=== PATIENT | female | born 1970 | race Caucasian/White ===

== ENCOUNTER 2024-06-07 15:17 | Outpatient (REF) | payer MEDICAID, SELFPAY ==
[2024-06-07 22:11] LABS: ALT 28 U/L (14-59); AST 21 U/L (15-37); Albumin 3.9 g/dL (3.4-5.0); Alkaline Phosphatase 55 U/L (46-116); BUN 6 mg/dL (7-18); Bilirubin, Total 0.42 mg/dL (0.2-1.0); CO2 30.1 mmol/L (21.0-32.0); CREATININE 0.8 mg/dL (0.55-1.02); Calcium 8.9 mg/dL (8.5-10.1); Calculated LDL 148 mg/dL (<100); Cholesterol 245 mg/dL (<200); Estimated GFR 86.96 (mL/min/1.73m2); Glucose 91 mg/dL (74-106); HDL Cholesterol 91 mg/dL (40-60); Total Protein 7.1 g/dL (6.4-8.2); Triglyceride 31 mg/dL (<150)
[2024-06-07 22:39] LABS: Anion Gap 6.9 mmol/L (3-11); Chloride 101 mmol/L (98-107); Potassium 3.7 mmol/L (3.5-5.1); Sodium 138 mmol/L (136-145)
== END 2024-06-07 15:18 | disposition home or self-care (01) ==
LOC: NCHCN 15:17
PROVIDERS: PCP Family Medicine; Visit Provider Family Medicine
DX: Z13.220 Encounter for screening for lipoid disorders (principal); Z13.228 Encounter for screening for other metabolic disorders; R79.89 Other specified abnormal findings of blood chemistry
CPT/HCPCS: 80053; 80061

== ENCOUNTER 2025-01-30 22:33 | Outpatient (REF) | payer MEDICAID, SELFPAY ==
[2025-01-30 23:09] LABS: Abs Immature Grans 0.01 10^3/uL (0.0-0.06); Absolute Basophil Count 0.03 10^3/uL (0.0-0.2); Absolute Eosinophil Count 0.07 10^3/uL (0.0-0.7); Absolute Lymphocyte Count 1.78 10^3/uL (1.2-3.4); Absolute Monocyte Count 0.44 10^3/uL (0.1-0.8); Absolute Neutrophil Count 3.14 10^3/uL (1.2-6.7); Basophils % 0.5 %; Eosinophils % 1.3 %; HCT 40.1 % (36.0-46.0); HGB 12.7 g/dL (11.2-15.7); Immature Grans % 0.2 %; Lymphocytes % 32.5 %; MCH 26.1 pg (27.0-33.0); MCHC 31.7 % (32.0-36.0); MCV 82 fL (80-95); MPV 10.3 fL (8.0-11.0); Neutrophils % 57.5 %; Platelet Count 257 10^3/uL (130-400); RBC 4.87 10^6/uL (3.93-5.22); RDW 13.6 % (11.7-14.6); RDW-SD 40.8 fL; WBC 5.47 10^3/uL (4.4-10.8)
[2025-01-30 23:11] LABS: ESR 8 mm/hr (0-30)
[2025-01-31 18:16] LABS: Rheumatoid Factor <8.6 IU/mL (<12.0)
[2025-02-01 09:23] LABS: Cyclic Citrullinated Peptide <2.5 U/mL (<5.0)
[2025-02-01 10:45] LABS: Lyme Ab w Rflx to Lyme Confirm Negative (Negative)
[2025-02-01 14:25] LABS: ANA Interpretation Negative (Negative)
== END 2025-01-30 22:34 | disposition home or self-care (01) ==
LOC: LBN 22:33
PROVIDERS: PCP Family Medicine; Visit Provider Orthopaedic Surgery
DX: M25.561 Pain in right knee (principal); M25.562 Pain in left knee; M17.0 Bilateral primary osteoarthritis of knee
CPT/HCPCS: 85652; 86200; 85025; 86038; 86431; 86618

== ENCOUNTER 2025-06-14 15:41 | Outpatient (REF) | payer MEDICAID, SELFPAY ==
[2025-06-14 20:16] LABS: HCT 38.0 % (36.0-46.0); HGB 12.0 g/dL (11.2-15.7); MCH 25.4 pg (27.0-33.0); MCHC 31.6 % (32.0-36.0); MCV 81 fL (80-95); MPV 10.2 fL (8.0-11.0); Platelet Count 277 10^3/uL (130-400); RBC 4.72 10^6/uL (3.93-5.22); RDW 13.4 % (11.7-14.6); RDW-SD 39.4 fL; WBC 5.20 10^3/uL (4.4-10.8)
[2025-06-14 20:56] LABS: ALT 26 U/L (14-59); AST 24 U/L (15-37); Albumin 3.8 g/dL (3.4-5.0); Alkaline Phosphatase 56 U/L (46-116); Anion Gap 8.4 mmol/L (3-11); BUN 7 mg/dL (7-18); Bilirubin, Total 0.4 mg/dL (0.2-1.0); CO2 28.6 mmol/L (21.0-32.0); Calcium 9.0 mg/dL (8.5-10.1); Chloride 102 mmol/L (98-107); Estimated GFR 101.44 (mL/min/1.73m2); Glucose 84 mg/dL (74-106); Potassium 4.0 mmol/L (3.5-5.1); Sodium 139 mmol/L (136-145); TSH (W/Ref FT4) 1.33 uIU/mL (0.36-3.74); Total Protein 7.1 g/dL (6.4-8.2)
== END 2025-06-14 15:42 | disposition home or self-care (01) ==
LOC: NCHCN 15:41
PROVIDERS: PCP Family Medicine; Visit Provider Family Medicine
DX: R53.83 Other fatigue (principal); R74.8 Abnormal levels of other serum enzymes
CPT/HCPCS: 80053; 85027; 84443